=== PATIENT | male | born 1975 | race Two or more races ===

== ENCOUNTER 2022-03-27 08:02 | Outpatient (REF) | payer MEDICAID, SELFPAY ==
[2022-03-27 09:12] LABS: MANUAL DIFF FLAG NO
[2022-03-27 09:38] LABS: Basophils Percent Auto 0.4 % (0-2); Eosinophils Absolute Auto 0.2 X10*3/uL (0.0-0.4); Eosinophils Percent Auto 2.4 % (0-4); Hematocrit 45.8 % (42.0-52.0); Hemoglobin 14.8 g/dl (14.0-18.0); Imm Gran Abs Auto 0.08 X10*3/uL (0.00-0.03); Imm Gran Pct Auto 0.9 % (0.0-0.4); Lymphocytes Absolute Auto 2.2 X10*3/uL (1.2-4.9); Lymphocytes Percent Auto 23.3 % (20-40); Mean Corpuscular HGB Conc 32.3 g/dl (31.0-36.0); Mean Corpuscular Hemoglobin 29.4 pg (27.0-33.0); Mean Corpuscular Volume 90.9 fL (80.0-98.0); Mean Platelet Volume 9.4 fL (9.4-12.4); Monocytes Absolute Auto 1.4 X10*3/uL (0.1-1.2); Monocytes Percent Auto 14.8 % (2-11); Neutrophils Absolute Auto 5.5 x10*3/uL (2.0-8.3); Neutrophils Percent Auto 58.2 % (45-73); Platelet Count 206 X10*3/uL (160-400); Red Blood Count 5.04 X10*6/uL (4.60-5.80); Red Cell Distribution Width 12.2 % (11.0-16.0); White Blood Count 9.4 X10*3/uL (4.8-10.8)
[2022-03-27 10:10] LABS: Alanine Aminotransferase 24 U/L (0-40); Albumin Level 4.1 g/dL (3.5-5.0); Alkaline Phosphatase 45 U/L (39-117); Anion Gap 12 (12-20); Aspartate Amino Transferase 22 U/L (5-37); Bilirubin Total 0.4 mg/dL (0.0-1.0); Blood Urea Nitrogen 11 mg/dL (9-16); Calcium 9.5 mg/dL (8.4-10.2); Carbon Dioxide 27 mmol/L (22-29); Chloride 106 mmol/L (96-108); Estimated Glomerular Filt Rate > 60; Glucose Random 98 mg/dL (60-115); Potassium 4.6 mmol/L (3.3-5.1); Sodium 140 mmol/L (135-145); Total Protein 7.4 g/dL (6.5-8.0)
== END 2022-03-27 08:03 | disposition home or self-care (01) ==
LOC: HO.LAB 08:02
PROVIDERS: PCP Internal Medicine; Referring Provider Internal Medicine; Visit Provider Nurse Practitioner
DX: Z01.818 Encounter for other preprocedural examination (principal)
CPT/HCPCS: 36415; 80053; 85025; 99202

== ENCOUNTER → 2022-07-22 14:56 | Outpatient (BNVA) | payer MEDICAID, SELFPAY | PROVIDERS: PCP Internal Medicine; Visit Provider Surgery | DX: K64.8 Other hemorrhoids (principal) | CPT/HCPCS: 46600; 99202 ==

== ENCOUNTER 2024-01-07 15:27 | Outpatient (AMB) | payer SELFPAY ==
--- NOTE | 2024-01-07 15:30 | A.OFFVIS_ITS ---
Intake Vital Signs 01/07/24 15:44 Height 5 ft 4 in Weight 166 lb BMI 28.5 BP 132/82 Blood Pressure Location Lt brachial Position Sitting Pulse 81 Intake Visit Reasons: abdominal pain Intake Note: Patient is seen in office for follow up visit, following abdominal pain. Patient c/o: onset 3 months, abdominal pain mostly in the morning, when sleeping gets burning pain, denies nausea, vomit, diarrhea, constipation Music Orchestrator Required: Yes Music Orchestrator Language: Maori Accompanied by: Other Relationship Allergies No Known Allergies Allergy (Verified 01/07/24 15:43) HPI abdominal pain HPI Details Assessment & Plan (1) Colon cancer screening: Code(s): Z12.11 - Encounter for screening for malignant neoplasm of colon Plan: Prydeinig Maori # family member translates per patient request This is his first colonoscopy. He denies any bowel or upper Gi problems. 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 No ID problems He had a first cousin with rectal cancer, no other FHX. Orders: Orders Comprehensive Met. Panel Today Z12.11 - Encounter for screening for malignant neoplas m of colon Complete Blood Cou nt Auto Diff Today Z12.11 - Encounter for screening for malignant neoplas m of colon Medications: New peg 3350-electroly obed 236-22.74-6.74 -5.86 gram (Golyt mar) until feca l effluent is petey r; do not exceed a total volume of 2 ,000 mL 240 mL PO Q10M 1 day 4,000 mL 0RF Z12.11 - Encounter for screening for malignant neoplas m of colon COLONOSCOPY BIOPSY TODAY'S VISIT Que Schmid #family member translates per pt request. This patient has been lost to follow-up since 03/27/2022 on the colonoscopy was never obtained. THe patient does not remember being here. We review the procedure and prep again. This is his first colonoscopy. He denies any bowel or upper Gi problems. 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 No ID problems He had a first cousin with rectal cancer, no other FHX. [facility] Medical History (Updated 01/07/24 @ 15:33 by CHRISTIE Mcdowell) Hemorrhoids with complication Surgical History No pertinent past surgical history Family History Paternal Grandfather Throat cancer Social History Household Members: None Alcohol intake: never Patient Tobacco Use Status: Never used Tobacco Review of Systems Const Denies fatigue, Denies fever(s), Denies night sweats, Denies poor appetite and Denies weight loss ENT Reports Normal hearing present, Denies dental pain, Denies dysphagia, Denies hearing loss, Denies mouth pain, Denies odynophagia, Denies throat swelling, Denies tongue swelling and Reports other (Dentition adequate) Card Reports no additional complaints Resp Reports no additional complaints GI Details: Denies abdominal pain, Denies melena, Denies bloating, Denies hematochezia, Denies constipation, Denies GI cramping, Denies dysphagia, Denies excessive flatus, Denies early satiety, Denies heartburn, Denies diarrhea, Denies nausea, Denies odynophagia, Denies vomiting and Denies hematemesis Skin/Breast Denies pruritus, Denies lesions, Denies rash and Denies jaundice Neuro Reports Normal hearing present and Denies Abnormal speech present Endo Denies fatigue Aller/Immun Denies throat swelling and Denies tongue swelling Physical Exam Vital Signs: Last Vital Signs Pulse 81 01/07/24 15:44 BP 132/82 01/07/24 15:44 BMI result Body Mass Index 28.5 Const General: cooperative, no acute distress, well developed and well groomed Nutritional Appearance: average body habitus and well nourished Orientation/consciousness: oriented to person, oriented to place and oriented to time Limitations: language barrier HEENT Head: Yes normocephalic and Yes atraumatic Eyes General: appearance normal, both eyes and all related structures Pupils: Equal, round and reactive pupils present Neck Neck: Yes normal visual inspection and Yes no lymphadenopathy Thyroid: Thyroid normal Resp Effort & Inspection: normal respiratory effort and able to speak in complete sentences Auscultation: clear to auscultation bilaterally Cardio Rate: regular rate Rhythm: regular rhythm Heart sounds: Normal, physiologic split S2 sound present Peripheral pulses: radial pulses present and posterior tibial pulses present GI Inspection: No distended and No Abdominal panniculus present Palpation (GI): Soft to palpation, nontender, no guarding, not rigid and No hepatosplenomegaly present Percussion: Yes normal to percussion Auscultation: normal bowel sounds Rectal Exam - Male: Yes deferred Skin General skin exam: no rashes or lesions noted, turgor normal, skin not dry, no jaundice, No spider nevi and no striae Rashes: no rashes Nails: normal Neuro General: oriented to person, oriented to place and oriented to time Cranial nerves: Yes Equal, round and reactive pupils present and Yes Normal he aring present Speech: No Abnormal speech present Extrem General: Yes normal to inspection, No clubbing, No cyanosis and No edema Psych Appearance: grossly normal and well kempt Mental Status: mental status grossly normal Speech and movement: Normal speech and movement present Affect: normal affect Attitude: cooperative Thought process: Normal thought process present and not confabulating Thought content: Normal thought content present Insight: Limited insight present (Psych) Judgement: Limited judgement present (Psych) Assessment & Plan Assessment & Plan (1) Pre-op examination: Code(s): Z01.818 - Encounter for other preprocedural examination Plan Que Schmid #family member translates per pt request. This patient has been lost to follow-up since 03/27/2022 on the colonoscopy was never obtained. THe patient does not remember being here. We review the procedure and prep again. This is his first colonoscopy. He denies any bowel or upper Gi problems. 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 No ID problems He had a first cousin with rectal cancer, no other FHX. Orders: Orders Colonoscopy - GI Use Only 01/07/24 Z01.818 - Encounter for other preprocedural examination Comprehensive Met. Panel 01/07/24 Z01.818 - Encounter for other preprocedural examination Complete Blood Count Auto Diff 01/07/24 Z01.818 - Encounter for other preprocedural examination Medications: New peg 3350-electrolytes 236-22.74-6.74 -5.86 gram (Golytely) until fecal effluent is clear; do not exceed a total volume of 2,000 mL 240 mL PO Q10M 4,000 mL 0RF 1 day Z12.11 - Encounter for screening for malignant neoplasm of colon bisacodyl (Dulcolax (bisacodyl)) 10 mg (2 x 5 mg) PO BEDTIME 4 tabs 0RF 2 days Coding Level of Care Code New Pt Level 3 (71120) Diagnoses Pre-op examination Z01.818
[2024-01-07 15:44] VITALS: BP 132/82; PULSE 81; BMI 28.5
== END 2024-01-07 16:15 | disposition home or self-care (01) ==
PROVIDERS: PCP Internal Medicine; Visit Provider Nurse Practitioner
DX: Z01.818 Encounter for other preprocedural examination (principal); Z12.11 Encounter for screening for malignant neoplasm of colon; R10.9 Unspecified abdominal pain
CPT/HCPCS: 99213

== ENCOUNTER → 2024-01-07 15:27 | Outpatient (BNVA) | payer MEDICAID, OTHER, SELFPAY | PROVIDERS: PCP Internal Medicine; Visit Provider Nurse Practitioner | DX: Z01.818 Encounter for other preprocedural examination (principal) | CPT/HCPCS: 99212 ==

== ENCOUNTER 2024-04-19 09:14 | Day surgery (SDC) | payer MEDICAID, OTHER, SELFPAY ==
--- NOTE | 2024-04-19 09:34 | HO.ANESPROP2 ---
PMF Active Problems Active Problems: All Active Problems Pre-op examination (Acute) Colon cancer screening (Acute) Headache disorder (Acute) Hypertension (Acute) Seizure disorder (Acute) Hemorrhoids with complication (Acute) Past Medical History Medical History (Updated 04/18/24 @ 13:59 by Violetta Rivera RN) GERD (gastroesophageal reflux disease) Seizure Hemorrhoids with complication Family History Family History Paternal Grandfather Throat cancer Family history of problems with anesthesia: No Surgical History Surgical History No pertinent past surgical history History of Problems with Anesthesia: No Social History Social History Household Members: None Alcohol intake: never Patient Tobacco Use Status: Never used Tobacco Use of substances other than those prescribed or required for medical reasons: No Are you DNR?: No Advance Directives: No Advance Directives Information Provided: Yes Meds Allergies Allergy/AdvReac Type Severity Reaction Status Date / Time No Known Allergies Allergy Verified 01/07/24 15:43 Exam Airway Mallampati Class: II TM Dist: >3cm Neck ROM: Full Heart: rrr Lungs: cta Assessment and Plan Assessment Anesthesia Assessment: Anesthesia Plan Discussed and Chart Reviewed Final Anesthetic Review Family History of Problems with Anesthesia: No History of Problems with Anesthesia: No NPO: Yes ASA Class: II Final Preanesthetic Review: No Changes in Pt Med Stat, Meds/Allgs Chart Reviewed and Consent Obtained/Reviewed Patient Risk: Low Procedure Risk: Low Anesthetic Plan Anesthetic Plan: MAC: Disposition: Standard PACU
[2024-04-19 10:00] VITALS: BMI 27.0
[2024-04-19 10:20] VITALS: BP 140/89; PULSE 71; RESP 15; TEMP 36.9; O2SAT 96
[2024-04-19] MEDS: Lactated Ringers 1,000 ML 50 ML IVCONT (10:31)
--- NOTE | 2024-04-19 11:26 | MHC.SHP ---
Pre-Procedural Eval Section A - 24 Hr Update-Section A only Date of Service: 04/19/24 Section B - Complete if H&P > 30 days Chief Complaint: screening Relevant Family History (Specify if Yes): No Relevant Social History: None Present Medications: see Short Stay Collaborative assessment Medical History: Significant History (GERD (gastroesophageal reflux disease) Seizure Hemorrhoids with complication) History of Previous Operations: No relevant previous surgery Allergies: Allergies Allergy/AdvReac Type Severity Reaction Status Date / Time No Known Allergies Allergy Verified 01/07/24 15:43 Review of Systems Sugical H&P ROS: Negative: Constitution, Cardiovascular, Respiratory, Neurological, Psychiatric, Hem-Onc, Allergic/Immunologic, Gastrointestinal, Genitourinary, Musculoskeletal, Integumentary, Endocrine and Eyes/Ears/Nose/Throat Exam Surgical H&P Exam: Normal: HEENT, Normal: Heart, Normal: Lungs, Normal: Extremities, Normal: Abdomen, Normal: Skin and Normal: Neurological Plan Diagnosis/Plan: Unchanged I have reviewed the history and physical and performed a pertinent physical examination on my patient. No changes have occurred unless specified. Time Spent With Patient Time: Total time managing care of this patient today ____ minutes.
--- NOTE | 2024-04-19 11:40 | P.OPN-COLO_ITS ---
Colonoscopy Operative Note Operative Note Date of Service: 05/17/24 Narrative: Operative Information Procedure Description: Colonoscopy Indication: screening Anesthesia: MAC COLONOSCOPY Instrument: Olympus variable stiffness pediatric scope 190L Colonoscopy Monitoring: Vital signs and clinical assessment, continuous EKG monitoring, Pulse oximetry, Carbon Dioxide monitoring and blood pressure monitoring were done throughout the procedure. Colon withdrawal time was 13 minutes. Procedure: The patient was placed in the left lateral decubitis position and pre-procedure medications were administered. After a digital rectal examination of the ano-rectum, the video colonoscope was inserted into the rectum and advanced through the colon to the cecum/TI. The colonoscope was slowly withdrawn in a retrograde panoramic fashion and the colon mucosa was carefully examined including a retroflexed view of the rectum. Findings and interventions are described below. Procedure Difficulty: easy Findings: Terminal Ileum-normal Cecum:normal Ascending Colon: 4-6 mm sessile polyp removed with cold forceps Transverse Colon -normal Descending Colon:normal Sigmoid Colon: normal Rectum: Retroflexion with small internal hemorrhoids seen, grade I Anorectum - normal Intervention: cold forceps Colon preparation: [place] Bowel Preparation Scale Right colon; 2 Transverse colon: 2 Left colon; 2 (0 = Unprepared colon segment with mucosa not seen due to solid stool that cannot be cleared. 1 = Portion of mucosa of the colon segment seen, but other areas of the colon segment not well seen due to staining, residual stool and/or opaque liquid. 2 = Minor amount of residual staining, small fragments of stool and/or opaque liquid, but mucosa of colon segment seen well. 3 = Entire mucosa of colon segment seen well with no residual staining, small fragments of stool or opaque liquid) Impression and Post Procedure Diagnosis: diverticulosis colon polyps internal hemorrhoids Plan: High fiber diet leaflet Avoid straining at stool, epsom salts and sitz bath, anusol supps or cream Repeat Colonoscopy in 5 years if pre cancerous polyp, 10 yrs if hyperplastic or earlier if clinically indicated Above findings were reviewed with the patient and relevant handouts were provided if indicated.
[2024-04-19 12:04] VITALS: BP 111/76; PULSE 83; RESP 16; TEMP 36.4; O2SAT 97
[2024-04-19 12:19] VITALS: BP 126/96; PULSE 73; RESP 16; TEMP 36.4; O2SAT 97
== END 2024-04-19 13:05 | disposition home or self-care (01) ==
PROVIDERS: Visit Provider Internal Medicine Gastroenterology
PROC: 0DJD8ZZ Inspection of Lower Intestinal Tract, Via Natural or Artificial Opening Endoscopic (ICD-10-PCS; CPT 45378; principal; 2024-04-19 11:50)
DX: Z12.11 Encounter for screening for malignant neoplasm of colon (principal); D12.2 Benign neoplasm of ascending colon; K64.0 First degree hemorrhoids
CPT/HCPCS: 45380; 88305; J2704

== ENCOUNTER → 2024-04-19 09:14 | Outpatient (BNV) | payer MEDICAID, SELFPAY | PROVIDERS: Visit Provider Internal Medicine Gastroenterology | DX: Z12.11 Encounter for screening for malignant neoplasm of colon (principal); K63.5 Polyp of colon; K64.0 First degree hemorrhoids | CPT/HCPCS: 45380 ==

== ENCOUNTER 2024-05-01 13:45 | Outpatient (REF) | payer MEDICAID, SELFPAY ==
--- NOTE | ~2024-05-01 | XR_ITS ---
EXAMINATION: XR SHOULDER, RIGHT CLINICAL INFORMATION: Right shoulder pain COMPARISON: None available. TECHNIQUE: Two views of the right shoulder. FINDINGS: The bones and soft tissues are normal. No fracture. Glenohumeral and acromioclavicular alignment is anatomic with normal joint space. No abnormal soft tissue calcifications. XR/XR shoulder RT min 2V IMPRESSION: Normal right shoulder.
== END 2024-05-01 13:46 | disposition home or self-care (01) ==
LOC: HO.XRAY 13:45
PROVIDERS: PCP Student in an Organized Health Care Education/Training Program; Visit Provider Student in an Organized Health Care Education/Training Program
DX: M75.21 Bicipital tendinitis, right shoulder (principal)
CPT/HCPCS: 73030

== ENCOUNTER 2024-05-03 13:48 | Outpatient (AMB) | payer SELFPAY ==
--- NOTE | 2024-05-03 13:51 | MHC.OFFVIS ---
Vital Signs 05/03/24 13:52 Height 5 ft 5 in Weight 168 lb 13.985 oz BMI 28.1 BP 137/85 Blood Pressure Location Rt brachial Position Sitting Intake Visit Reasons: s/p colon Intake Note: Junior returns to in office visit today s/p colonoscopy. CC: Patient reports doing well and denies having any GI symptoms or concerns today. Clinical Reimbursement Specialist Required: Yes Clinical Reimbursement Specialist Language: Armenian Clinical Reimbursement Specialist Name: son Accompanied by: Son Allergies No Known Allergies Allergy (Verified 05/03/24 13:56) HPI HPI s/p colon: Details: Assessment & Plan (1) Colon cancer screening: Code(s): Z12.11 - Encounter for screening for malignant neoplasm of colon Plan: Congolese Armenian # family member translates per patient request This is his first colonoscopy. He denies any bowel or upper Gi problems. 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 No ID problems He had a first cousin with rectal cancer, no other FHX. Orders: Orders Comprehensive Met. Panel Today Z12.11 - Encounter for screening for malignant neoplasm of colon Complete Blood Count Auto Diff Today Z12.11 - Encounter for screening for malignant neoplasm of colon Medications: New peg 3350-electrolytes 236-22.74-6.74 -5.86 gram (Golytely) until fecal effluent is clear; do not exceed a total volume of 2,000 mL 240 mL PO Q10M 1 day 4,000 mL 0RF Z12.11 - Encounter for screening for malignant neoplasm of colon COLONOSCOPY 04/19/24 Findings: Terminal Ileum-normal Cecum:normal Ascending Colon: 4-6 mm sessile polyp removed with cold forceps Transverse Colon -normal Descending Colon:normal Sigmoid Colon: normal Rectum: Retroflexion with small internal hemorrhoids seen, grade I Anorectum - normal Intervention: cold forceps Impression and Post Procedure Diagnosis: diverticulosis colon polyps internal hemorrhoids Plan: High fiber diet leaflet Avoid straining at stool, epsom salts and sitz bath, anusol supps or cream Repeat Colonoscopy in 5 years if pre cancerous polyp, 10 yrs if hyperplastic or earlier if clinically indicated BIOPSY Received: 04/19/24 Diagnosis Colon, ascending, polypectomy: Sessile serrated lesion/polyp; negative for cytologic dysplasia. TODAY'S VISIT Armenian: family member translates This patient has been lost to follow-up since 03/27/2022 on the colonoscopy was never obtained. He is agreeable to a 5 year follow up. The procedure was well tolerated. The results were explained and the patient is agreeable to the follow-up interval as stated. The bowel pattern has returned to normal. Education was provided to tell any 1st degree relatives about their findings to be sure that they are screened by age 45. Educated that they will be put on a recall list when it is time for their repeat scope but should they move out of state or away from the hospital they will need to remember along with their primary to repeat the procedure in a timely fashion to avoid any adverse complications. [facility] Medical History GERD (gastroesophageal reflux disease) Seizure Hemorrhoids with complication Surgical History H/O colonoscopy Family History Paternal Grandfather Throat cancer Social History Household Members: None Alcohol intake: never Patient Tobacco Use Status: Never used Tobacco Review of Systems Const Denies fatigue, Denies fever(s), Denies night sweats, Denies poor appetite and Denies weight loss ENT Reports Normal hearing present, Denies dental pain, Denies dysphagia, Denies hearing loss, Denies mouth pain, Denies odynophagia, Denies throat swelling, Denies tongue swelling and Reports other (Dentition adequate) Card Reports no additional complaints Resp Reports no additional complaints GI Details: Denies abdominal pain, Denies melena, Denies bloating, Denies hematochezia, Denies constipation, Denies GI cramping, Denies dysphagia, Denies excessive flatus, Denies early satiety, Denies heartburn, Denies diarrhea, Denies nausea, Denies odynophagia, Denies vomiting and Denies hematemesis Skin/Breast Denies pruritus, Denies lesions, Denies rash and Denies jaundice Neuro Reports Normal hearing present and Denies Abnormal speech present Endo Denies fatigue Aller/Immun Denies throat swelling and Denies tongue swelling Physical Exam Vital Signs: Last Vital Signs BP 137/85 05/03/24 13:52 BMI result Body Mass Index 28.1 Const General: cooperative, no acute distress, well developed and well groomed Nutritional Appearance: average body habitus and well nourished Orientation/consciousness: oriented to person, oriented to place and oriented to time Limitations: language barrier HEENT Head: Yes normocephalic and Yes atraumatic Eyes General: appearance normal, both eyes and all related structures Pupils: Equal, round and reactive pupils present Neck Neck: Yes normal visual inspection and Yes no lymphadenopathy Thyroid: Thyroid normal Resp Effort & Inspection: normal respiratory effort and able to speak in complete sentences Auscultation: clear to auscultation bilaterally Cardio Rate: regular rate Rhythm: regular rhythm Heart sounds: Normal, physiologic split S2 sound present Peripheral pulses: radial pulses present and posterior tibial pulses present GI Inspection: No distended and No Abdominal panniculus present Palpation (GI): Soft to palpation, nontender, no guarding, not rigid and No hepatosplenomegaly present Percussion: Yes normal to percussion Auscultation: normal bowel sounds Rectal Exam - Male: Yes deferred Skin General skin exam: no rashes or lesions noted, turgor normal, skin not dry, no jaundice, No spider nevi and no striae Rashes: no rashes Nails: normal Neuro General: oriented to person, oriented to place and oriented to time Cranial nerves: Yes Equal, round and reactive pupils present and Yes Normal hearing present Speech: No Abnormal speech present Extrem General: Yes normal to inspection, No clubbing, No cyanosis and No edema Psych Appearance: grossly normal and well kempt Mental Status: mental status grossly normal Speech and movement: Normal speech and movement present Affect: normal affect Attitude: cooperative Thought process: Normal thought process present and not confabulating Thought content: Normal thought content present Insight: Limited insight present (Psych) Judgement: Limited judgement present (Psych) Assessment & Plan Assessment & Plan (1) Sessile colonic polyp: Code(s): K63.5 - Polyp of colon Category: Medical Plan Armenian: family member translates This patient has been lost to follow-up since 03/27/2022 on the colonoscopy was never obtained. He is agreeable to a 5 year follow up. The procedure was well tolerated. The results were explained and the patient is agreeable to the follow-up interval as stated. The bowel pattern has returned to normal. Education was provided to tell any 1st degree relatives about their findings to be sure that they are screened by age 45. Educated that they will be put on a recall list when it is time for their repeat scope but should they move out of state or away from the hospital they will need to remember along with their primary to repeat the procedure in a timely fashion to avoid any adverse complications. Coding Level of Care Code Est Pt Level 3 (64887) Diagnoses Sessile colonic polyp K63.5
[2024-05-03 13:52] VITALS: BP 137/85; BMI 28.1
== END 2024-05-03 14:16 | disposition home or self-care (01) ==
PROVIDERS: PCP Student in an Organized Health Care Education/Training Program; Visit Provider Nurse Practitioner
DX: K63.5 Polyp of colon (principal)
CPT/HCPCS: 99213

== ENCOUNTER → 2024-05-03 13:48 | Outpatient (BNVA) | payer MEDICAID, OTHER, SELFPAY | PROVIDERS: PCP Student in an Organized Health Care Education/Training Program; Visit Provider Nurse Practitioner | DX: K63.5 Polyp of colon (principal) | CPT/HCPCS: 99212 ==

== ENCOUNTER 2025-07-13 09:27 | Outpatient (REF) | payer MEDICAID, OTHER, SELFPAY ==
--- OUTSIDE RECORDS SUMMARY | 2025-07-13 09:20 | XMS_ITS | Encounter Summary ---
Author Organization [employer] Address [address] 7[address] [place] [address] Care Team Providers Care Paint Sprayer Sandblaster Name Role Phone Ricky Taveras MD Primary Care Prov ider Reason for Visit * Reason Comments Dry Mouth Encounter Details Date Type Department Care Team ([facility] Contact Info) Description 07/13/2025 9:20 AM EDT Office Visit [facility] MED & PEDS [address] [place] [address] Lianna Brewer MD [address] [place] [address] Dry mouth (Primary Dx) Social History Tobacco Use Types Packs/Day Years Used Date Smoking Tobacco: Never Passive Smoke Exposure: Never Smokeless Tobacco: Never Tobacco Cessation:Counseling Given: Not Answered Depression Answer Date Recorded Patient Health Questionnaire-9 Score 8 05/17/2023 Housing Stability Answer Date Recorded What is your housing situation today? I have girish moore 09/02/[address] you li ve. Do you have problems with any of the following? None of the above 09/02/2023 Food Insecurity Answer Date Recorded Within the past 12 months, y ou worried that your food would run out before you got money to buy more: Never True 09/02/2023 Within the past 12 months,th e food you bought just didn't last and you didn't have enough money to get more: Never True Transportation Answer Date Recorded In the past 12 months, has l ack of transportation kept you from medical appts, meetings, work or from getting things needed for daily living? No 09/02/2023 Utilities Answer Date Recorded In the past 12 months, has t he electric, gas, oil or water [employer] threatened to shut off services in your home? No 09/02/2023 Depression Answer Date Recorded Patient Health Questionnaire-2 Score 2 05/17/2023 Sex and Gender Information Value Date Recorded Sex Assigned at Male 09/14/2022 10:37 AM EDT Legal Sex Male 10:37 AM EDT Gender Identity Male 09/14/2022 10:37 AM EDT Sexual Orientation Straight 09/14/2022 10 :37 AM EDT documented as of this encounter Last Filed Vital Signs Vital Sign Reading Time Taken Comments Blood Pressure 125/80 07/13/2025 9:13 AM EDT Pulse 83 07/13/2025 9:13 AM EDT Temperature 36.4 C (97.5 F) 07/13/2025 9:13 AM EDT Respiratory Rate 18 07/13/2025 9:13 AM EDT Oxygen Saturation - - Inhaled Oxygen Concentration - - Weight 75.8 kg (167 lb) 07/13/2025 9:13 AM EDT Height 163.8 cm (5' 4.5 ) 07/13/2025 9:13 AM EDT Body Mass Index 28.22 07/13/2025 9:13 AM EDT documented in this encounter Progress Notes * Lianna Brewer MD - 07/13/2025 9:20 AM EDT Subjective Patient ID: Junior Sal is a 49 y.o. male who presents for Dry Mouth. Complains of dry mouth after starting a medication he got in the internet The symptoms are better after stopping the medication Review of Systems Constitutional: Negative. Respiratory: Negative. Cardiovascular: Negative. Gastrointestinal: Negative. Genitourinary: Negative. Objective Physical Exam Constitutional: Appearance: Normal appearance. Cardiovascular: Rate and Rhythm: Normal rate and regular rhythm. Pulmonary: Effort: Pulmonary effort is normal. Breath sounds: Normal breath sounds. Neurological: General: No focal deficit present. Mental Status: He is alert. Psychiatric: Mood and Affect: Mood normal. Behavior: Behavior normal. Assessment/Plan Diagnoses and all orders for this visit: Dry mouth Comments: Strongly advised to stop the medication Labs ordered to check Kidney functions Orders: - Basic Metabolic Panel; Future - Lipid Panel, Standard; Future - Hepatic Function Panel; Future documented in this encounter Plan of Treatment Scheduled Orders Name Type Priority Associated Diagnoses Orde r Schedule Basic Metabolic Panel Lab Routine Dry mouth Expected: 07/13/2025 (Approximate), Expires: 07/13/2026 Lipid Panel, Standard Lab Routine Dry mouth Expected: 07/13/2025 (Approximate), Expires: 07/13/2026 Hepatic Function Panel Lab Routine Dry mouth Expected: 07/13/2025 (Approximate), Expires: 07/13/2026 documented as of this encounter Visit Diagnoses Diagnosis Dry mouth- Primary Disturbance of salivary secretion documented in this encounter Additional Health Concerns Assessment Noted Time PHQ-9 Depression Total Score: 8 05/17/20 23 11:03 AM EDT documented as of this encounter Care Teams Paint Sprayer Sandblaster Relationship Specialty Start Date End Date Ricky Taveras MD [address] [place] [id number] PCP - General Internal Medicine 06/17/20 documented as of this encounter
--- OUTSIDE RECORDS SUMMARY | 2025-07-13 10:15 | XMS_ITS | Encounter Summary ---
Author Organization [employer] Address [address] [place] [address] Care Team Providers Care Cupola Charger Insulation Name Role Phone Ricky Taveras MD Primary Care Prov ider Encounter Details Date Type Department Care Team (Latest Contact Info) Description 07/13/2025 Travel Social History Tobacco Use Types Packs/Day Years Used Date Smoking Tobacco: Never Passive Smoke Exposure: Never Smokeless Tobacco: Never Depression Answer Date Recorded Patient Health Questionnaire-9 Score 8 05/17/2023 Housing Stability Answer Date Recorded What is your housing situation today? I have girish teresa 09/02/[address] you li [...] t he electric, gas, oil or water company threatened to shut off services in your home? No 09/02/2023 Depression Answer Date Recorded Patient Health Questionnaire-2 Score 2 05/17/2023 Sex and Gender Information Value Date Recorded Sex Assigned at Male 09/14/2022 10:37 AM EDT Legal Sex Male 10:37 AM EDT Gender Identity Male 09/14/2022 10:37 AM EDT Sexual Orientation Straight 09/14/2022 10 :37 AM EDT documented as of this encounter Plan of Treatment Not on file documented as of this encounter Visit Diagnoses Not on filedocumented in this encounter Additional Health Concerns Assessment Noted Time PHQ-9 Depression Total Score: 8 05/17/20 23 11:03 AM EDT documented as of this encounter Care Teams Cupola Charger Insulation Relationship Specialty Start Date End Date GoldRicky Sheikh MD [address] [place] [phone] PCP - General Internal Medicine 06/17/20 documented as of this encounter
--- OUTSIDE RECORDS SUMMARY | 2025-07-13 10:15 | XMS_ITS | Clinical Summary ---
Author Organization [facility] Address [address] [place] [phone] Phone Care Team Providers Care Recruitment And Outreach Assistant Name Role Phone Physician, No Pcp Primary Care Provider Unavaila ble Allergies No known active allergies Medications No known medications Active Problems No known active problems Social History Tobacco Use Types Packs/Day Years Used Date Smoking Tobacco: Never Assessed Sex and Gender Information Value Date Recorded Sex Assigned at Not on file Legal Sex Male 8:24 AM EST Gender Identity Not on file Sexual Orientation Not on file Obstetrics History Last Filed Vital Signs Vital Sign Reading Time Taken Comments Blood Pressure 127/94 09/19/2024 1:59 PM EST Pulse 79 09/19/2024 1:59 PM EST Temperature 36.8 C (98.2 F) 09/19/2024 1:59 PM EST Respiratory Rate 16 09/19/2024 1:59 PM EST Oxygen Saturation 94% 09/19/2024 1:59 PM EST Inhaled Oxygen Concentration - - Weight 74.8 kg (165 lb) 09/19/2024 8:50 AM EST Height 167.6 cm (5' 6 ) 09/19/2024 8:50 AM EST Body Mass Index 26.63 09/19/2024 8:50 AM EST Plan of Treatment Health Maintenance Due Date Last Done Comments Hepatitis B Vaccines (1 of 3 - 19+ 3-dose series) 1995 COVID-19 Vaccine (2023-2 5 season) 2024 HIV Screening 09/19/2024 Hepatitis C Screening 09/19/2024 Social Influencers of Health Screening 09/19/2024 Depression Screening 11/15/2024 Influenza Vaccine (#1) 2025 0, 12/27/2019 Colorectal Cancer Screening: FIT-DNA (Cologuard) 12/01/2026 12/01/2023 Cholesterol Screening (Lipid Panel) 05/19/2028 05/19/2023 DTaP,Tdap,and Td Vaccines (2 - Td or Tdap) 12/27/2029 12/27/2019 HIB Vaccines Aged Out No longer eligi ble based on patient's age to complete this topic HPV Vaccines Aged Out No longer eligi ble based on patient's age to complete this topic Hepatitis A Vaccines Aged Out No long er eligible based on patient's age to complete this topic IPV Vaccines Aged Out No longer eligi ble based on patient's age to complete this topic MMR Vaccines Aged Out No longer eligi ble based on patient's age to complete this topic Meningococcal ACWY Vaccine Aged Out N o longer eligible based on patient's age to complete this topic Meningococcal B Vaccine Aged Out No l onger eligible based on patient's age to complete this topic Pneumococcal Vaccine: Pediatrics (0 to 5 Years) and At-Risk Patients (6 to 49 Years) Aged Out No longer eligible b ased on patient's age to complete this topic RSV Immunization Patients Under 20 months Aged Out No longer eligible b ased on patient's age to complete this topic Varicella Vaccines Aged Out No longer eligible based on patient's age to complete this topic Insurance MEDICAID - [place] Care Teams Recruitment And Outreach Assistant Relationship Specialty Start Date End Date Physician, No Pcp PCP - General 09/19/24
--- OUTSIDE RECORDS SUMMARY | 2025-07-13 10:15 | XMS_ITS | Encounter Summary ---
Author Organization [employer] Address [address] [place] [address] Care Team Providers Care Sander Setter Name Role Phone Ricky Taveras MD Primary Care Prov ider Encounter Details Date Type Department Care Team ([facility] Contact Info) Description 09/08/2023 Orders Only [facility] MED & PEDS [address] [place] [address] Lianna Brewer MD [address] [place] [address] Social History Tobacco Use Types Packs/Day Years Used Date Smoking Tobacco: Never Passive Smoke Exposure: Never Smokeless Tobacco: Never Depression Answer Date Recorded Patient Health Questionnaire-9 Score 8 05/17/2023 Housing Stability Answer Date Recorded What is your housing situation today? I have girishrhoda moore 09/02/[address] you [...] documented as of this encounter Care Teams Sander Setter Relationship Specialty Start Date End Date Ricky Taveras MD [address] [place] [phone] PCP - General Internal Medicine 06/17/20 documented as of this encounter
--- OUTSIDE RECORDS SUMMARY | 2025-07-13 10:15 | XMS_ITS | Encounter Summary ---
Author Organization [employer] Address [address] [place] [address] [address] [place] [address] Care Team Providers Care Internal Affairs Investigator Name Role Phone Ricky Taveras MD Primary Care Prov ider Encounter Details Date Type Department Care Team (Latest Contact Info) Description 06/16/2021 Abstract [facility] CONVERSIONS Dental, Provider, DDS Social History Tobacco Use Types Packs/Day Years [...] Diagnoses Not on filedocumented in this encounter Care Teams Internal Affairs Investigator Relationship Specialty Start Date End Date Ricky Taveras MD [address] [place] [address] PCP - General Internal Medicine 06/17/20 documented as of this encounter
--- OUTSIDE RECORDS SUMMARY | 2025-07-13 10:15 | XMS_ITS | Clinical Summary ---
Author Organization [employer] Address [address] [facility] 7t [place] [address] Care Team Providers Care Substitute Nurse Name Role Phone Ricky Taveras MD Primary Care Prov ider Allergies No known active allergies Medications * This document contains information received from the source organization and may not represent a complete record from that organization. docusate sodium (Colace) 100 MG capsule TAKE ONE CAPSULE TWICE DAILY NEEDED 06/24/2022 Active hydrocortisone 1 % cream APPLY A THIN LAYER TO THE AFFECTED AREA(s) TWICE DAILY 06/24/2022 Active GaviLyte-G 236 g solution MIX AND DRINK 240ml's EVERY 10 minutes UNTIL fecal effluent is CLEAR, DO not exceed 2000ml's (ONE-HALF BOTTLE) 05/25/2022 Active Active Problems Problem Noted Date Diagnosed Date Screening for colon cancer 11/22/2023 Assessment & Plan (02/09/2025 9:29 AM EDT): Patient underwent colonoscopy on April 2024, 1 polyp was resected, due in 5 years, no complications Assessment & Plan (11/22/2023 1:08 PM EST): Will send cologuard risk vs benefits discussed Chronic right shoulder pain 11/22/2023 Assessment & Plan (02/09/2025 9:30 AM EDT): Resolved, no changes will be made, reinforced stretching exercises, follow up as needed Assessment & Plan (07/10/2024 1:21 PM EDT): Patient continues with pain, xray was normal, will refer to PT, continue home remedies, cold packs, rest tylenol/ibuprofen as needed Assessment & Plan (11/22/2023 1:09 PM EST): Resolved, told to avoid heavy lifting, may apply ice/heat as needed Mixed anxiety and depressive disorder 05/17/2023 Assessment & Plan (07/05/2023 1:35 PM EDT): Patient refers symptoms have improved, no reported episodes of chest pain, continue behavioral therapy follow up Assessment & Plan (05/17/2023 11:18 AM EDT): Assessment: Junior was engaged with active reflective listening and open-ended questions. Assessed symptoms, risks, and social supports with direct questions. Discussed current symptoms intensity and frequency. Emotions were normalized and validated. He identified work as coping mechanisms and family as protective factors. Provided psychoeducation around Anxiety Coping skills. Discussed OP therapy he agreed to referral. Provided education around integrated medicine and the options of follow up BE's as needed. Provided contact information should questions or concerns arise. Plan: Junior will engage in effective coping mechanisms provided. Referral will be place for Ind. Therapy. Patient with ack of motivation, insomnia, poor appetite, feeling bad about himself, trouble with concentration at times, passive thoughts without plan or intentions, feeling on edge, persistent worry, he denies SI, HI, AVH or self- harm at this time. 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 He denies Hx of trauma and substance abuse. Patient will benefit from Ind. Therapy. At this time Junior Sal meets criteria for Visit Diagnoses: Problem List Items Addressed This Visit Other Mixed anxiety and depressive disorder Patient ready to address current needs Yes Strengths include willing to seeking help, support from family. PLAN: 1. Follow up with [facility]: Not recommended for follow-up 2. Patient goal is to engage in MH services 3. Behavioral Recommendations a. Ind. Therapy b. Use of Coping Skills Syncope 05/12/2023 Seizure disorder 05/12/2023 Headache 05/12/2023 Cestode infection 05/12/2023 Elevated blood pressure reading 05/12/2023 Assessment & Plan (02/09/2025 9:31 AM EDT): Has remained stable, keep bp log, keep low sodium diet and exercise as tolertated, target <140/90 Encounters Date Type Department Care Team Description 07/13/2025 9:20 AM EDT Office Visit [facility] & PEDS [address] [place] [address] Lianna Brewer MD Dry mouth (Primary Dx) 07/13/2025 Travel 04/17/2025 Telephone [facility] [address] [place] [address] Ricky Taveras MD from Last 3 Months Immunizations Immunization Administration Dates Next Due Influenza injectable quadrivalent preservative f ree 09/11/2020,12/27/2019 Tdap 12/27/2019 Social History Tobacco Use Types Packs/Day Years [...] Orientation Straight 09/14/2022 10 :37 AM EDT Last Filed Vital Signs Vital Sign Reading Time Taken Comments Blood Pressure 125/80 07/13/2025 9:13 AM EDT Pulse 83 07/13/2025 9:13 AM EDT Temperature 36.4 C (97.5 F) 07/13/2025 9:13 AM EDT Respiratory Rate 18 07/13/2025 9:13 AM EDT Oxygen Saturation 97% 09/06/2023 10:06 AM EDT Inhaled Oxygen Concentration - - Weight 75.8 kg (167 lb) 07/13/2025 9:13 AM EDT Height 163.8 cm (5' 4.5 ) 07/13/2025 9:13 AM EDT Body Mass Index 28.22 07/13/2025 9:13 AM EDT Plan of Treatment Health Maintenance Due Date Last Done Comments CT Colonography 1976 Colonoscopy 1976 FIT 1976 FOBT 1976 Sigmoidoscopy 1976 Disability Screening 1976 Alcohol/Substance Use Screening 1988 Family Planning (PISQ) 1991 Hepatitis B Vaccines (1 of 3 - 19+ 3-dose series) 1995 Dental Oral Exam 01/02/2024 07/01/2023, 06/16/2021 Depression Screening 05/17/2024 05/17/2023, 05/17/20 23 SDOH Screening 07/05/2024 07/05/2023 COVID-19 Vaccine (2023- season) 2024 04/08/2021, 03/11/2021 Dental X-Ray: Bitewings 07/15/2025 07/14/20 24, 07/01/2023, 06/16/2021 Influenza Vaccine (#1) 2025 , 09/11/2020, 12/27/2019 Dental Prophylaxis 08/22/2025 02/19/2025, 0 07/14/2024, 07/01/2023, Additional history exists Tobacco Screening 07/13/2026 07/13/2025 Zoster Vaccines (1 of 2) 2026 Colorectal Cancer Screening 12/01/2026 FIT DNA/Cologuard 12/01/2026 12/01/2023 Dental X-Ray: Full Mouth 07/15/2027 07/14/2024, 08/0 12/2020 Lipid Panel 05/19/2028 05/19/2023, 10/01/2021 DTaP/Tdap/Td Vaccines (2 - Td or Tdap) 12/27/2029 12/27/2019 RSV Patients and Patients Aged 60 years or older (1 - 1-dose 75+ series) 2051 HIV Screening Completed 12/28/2019 Hepatitis C Screening Completed 12/28/2019 HIB Vaccines Aged Out No longer eligi [...] patient's age to complete this topic Meningococcal Vaccine Aged Out No jarett tiffany eligible based on patient's age to complete this topic Pneumococcal Vaccine: Pediatrics (0 to 5 Years) and At-Risk Patients (6 to 49) Years Aged Out No longer eligible based on patient's age to complete this topic RSV under 20 months Aged Out No longe r eligible based on patient's age to complete this topic Rotavirus Vaccines Aged Out No longer eligible based on patient's age to complete this topic Procedures Procedure Name Priority Date/Time Associated Diagnosis Comments Full PROPHYLAXIS - ADULT Routine 02/19/2025 9:00 AM EDT INTRAORAL - COMPLETE SERIES OF RADIOGRAPHIC IMAGES Routine 07/14/2024 3:00 PM EDT LAB COLOGUARD COLON CANCER SCREEN Routine 12/01/2023 9:20 AM EST Screening for colon cancer PERIODIC ORAL EVALUATION - ESTABLISHED PATIENT Routine 07/01/2023 10:30 AM EDT LIPID PANEL, STANDARD Routine 05/19/2023 8:32 AM EDT Chest discomfort ZZZ HISTORICAL HEPATITIS C ANTIBODY RFLX Routine 12/28/2019 10:25 AM EST DIPTI HISTORICAL HIV AB/AG Routine 12/28/2019 10:25 AM EST from Last 3 Months or Most Recently Relevant to Health Maintenance Results * (ABNORMAL) Cologuard?? colon cancer screening (12/01/2023 9:20 AM EST) Cologuard Result Positive( A) Negative 12/19/2023 11:49 PM EST [facility] (CLIA #:[id number]) Comment: POSITIVE TEST RESULT. A positive Cologuard result should be followed with a colonoscopy or visual examination of the colon. The normal value (reference range) for this assay is negative. TEST DESCRIPTION: Composite algorithmic analysis of stool DNA-biomarkers with hemoglobin immunoassay. Quantitative values of individual biomarkers are not reportable and are not associated with individual biomarker result reference ranges. Cologuard is intended for colorectal cancer screening of adults of either sex, 45 years or older, who are at average-risk for colorectal cancer (CRC). Cologuard has been approved for use by the U.S. FDA. The performance of Cologuard was established in a cross sectional study of average-risk adults aged 50-84. Cologuard performance in patients ages 45 to 49 years was estimated by sub-group analysis of near-age groups. Colonoscopies performed for a positive result may find as the most clinically significant lesion: colorectal cancer [4.0%], advanced adenoma (including sessile serrated polyps greater than or equal to 1cm diameter) [20%] or non- advanced adenoma [31%]; or no colorectal neoplasia [45%]. These estimates are derived from a prospective cross-sectional screening study of 10,000 individuals at average risk for colorectal cancer who were screened with both Cologuard and colonoscopy. (Pari Simon et al, N Engl J Med 2014;370(14):2339-0163.) Cologuard may produce a false negative or false positive result (no colorectal cancer or precancerous polyp present at colonoscopy follow up). A negative Cologuard test result does not guarantee the absence of CRC or advanced adenoma (pre-cancer). The current Cologuard screening interval is every 3 years. ([place] [employer] Society and U.S. Multi-Society Task Force). Cologuard performance data in a 10,000 patient pivotal study using colonoscopy as the reference method can be accessed at the following location: www.[employer].PowerInbox/results. Additional description of the Cologuard test process, warnings and precautions can be found at www.Element Powerrd.com. Stool specimen (specimen) 12/01/2023 9:20 AM EST 12/02/2023 3:50 PM EST Ricky Gasria MD LAB MOLECULAR DIAG NOSTICS ORDERABLES Final Result [facility] (CLIA #:[id number]) Shea [place] [address], * (ABNORMAL) Lipid Panel, Standard (05/19/2023 8:32 AM EDT) Cholesterol, Total 226(H) <200 mg/dL [facility] HDL Cholesterol 52 > OR = 40 mg/dL [facility] Triglycerides 149 <150 mg/dL [facility] LDL Cholesterol 146(H) mg/dL (calc) [facility] [place] [facility] Comment: Reference range: <100 Desirable range <100 mg/dL for primary prevention; <70 mg/dL for patients with CHD or diabetic patients with > or = 2 CHD risk factors. LDL-C is now calculated using the Ender-Amadou calculation, which is a validated novel method providing better accuracy than the Friedewald equation in the estimation of LDL-C. Ender COPELAND et al. CHACHO. 2013;310(19): 5989-9995 (http://education.[employer].PowerInbox/faq/JIF582) Chol/HDLC Ratio 4.3 <5.0 (calc) [facility] Non-HDL Cholesterol 174(H) <130 mg/dL (calc) [facility] Comment: For patients with diabetes plus 1 major ASCVD risk factor, treating to a non-HDL-C goal of <100 mg/dL (LDL-C of <70 mg/dL) is considered a therapeutic option. Blood Venous blood specimen / Unknown 05/19/2023 8:32 AM EDT 05/19/2023 8:32 AM EDT Narrative [facility] - 05/20/2023 5:15 AM EDT FASTING:YES FASTING: YES Emily Callahan MD LAB BLOOD ORDERABLES Final Re sult Performing Organization Address City/[facility]/ZIP Co de Phone Number [facility] [address] [facility], [place] [address] [facility] [address] [place] [address] * HEPATITIS C ANTIBODY RFLX (12/28/2019 10:25 AM EST) [facility] HEPATITIS C ANTIBODY NONREACTIVE NONREACTIVE [facility] Comment: Antibodies to HCV not detected; does not exclude early acute HCV infection. 12/28/2019 10:2 5 AM EST Fiorella Underwood FIRER BOILER HISTORICAL/NON ORDERABLE LA BS Final Result Performing Organization Address [facility] Co de Phone Number [facility] [address] * HIV AB/AG (12/28/2019 10:25 AM EST) Pathologist [facility] HIV AG/AB NONREACTIVE [facility] Comment: HIV-1 p24 Ag and/or HIV-1/HIV-2 Ab not detected. A test result that is nonreactive does not exclude the possibility of exposure to or infection with HIV-1 and/or HIV-2. Nonreactive results in this assay for individuals with prior exposure to HIV-1 and/or HIV-2 may be due to antigen and antibody levels that are below the limit of detection of this assay. The [employer] Craftsman HIV Ag/Ab Combo assay result and supplemental assay results should be interpreted in conjunction with the patient's clinical presentation, history and other laboratory results. If the results are inconsistent with clinical evidence, additional testing is suggested to confirm the result. 12/28/2019 10:2 5 AM EST us Fiorella Underwood FIRER BOILER HISTORICAL/NON ORDERABLE LA BS Final Result [place] [id number] [place] [address], from Last 3 Months or Most Recently Relevant to Health Maintenance Insurance [facility] ADULT DENTAL - [facility] (MEDICAID) Care Teams Substitute Nurse Relationship Specialty Start Date End Date Ricky Taveras MD [address] [place] [phone] PCP - General Internal Medicine 06/17/20
[2025-07-13 15:19] LABS: Alanine Aminotransferase 50 U/L (0-40); Albumin Level 4.4 g/dL (3.5-5.0); Alkaline Phosphatase 45 U/L (39-117); Anion Gap 12 (12-20); Aspartate Amino Transferase 48 U/L (5-37); Blood Urea Nitrogen 13 mg/dL (9-16); Calcium 9.8 mg/dL (8.4-10.2); Carbon Dioxide 27 mmol/L (22-29); Chloride 107 mmol/L (96-108); Cholesterol 218 mg/dL (<200); Estimated Glomerular Filt Rate > 60; HDL Cholesterol 50 mg/dL (>40); Potassium 3.7 mmol/L (3.3-5.1); Sodium 142 mmol/L (135-145); Total Protein 7.4 g/dL (6.5-8.0); Triglycerides 107 mg/dL (<150)
== END 2025-07-13 09:28 | disposition home or self-care (01) ==
LOC: HO.CHCLDS 09:27
PROVIDERS: Visit Provider Student in an Organized Health Care Education/Training Program
DX: R68.2 Dry mouth, unspecified (principal)
CPT/HCPCS: 36415; 80048; 80061; 80076